=== PATIENT | female | born 1975 | race Two or more races ===

== ENCOUNTER 2017-03-02 10:02 | Outpatient (CLI) | payer OTHER | END 2017-03-02 10:15 | disposition home or self-care (01) | LOC: TOM 10:02 | DX: N13.30 Unspecified hydronephrosis (principal) ==

== ENCOUNTER 2017-11-29 15:24 | Emergency (ER) | payer OTHER ==
[~2017-11-29] VITALS: Ht 152.4 cm; Wt 51.7 kg
== END 2017-11-29 17:15 | disposition home or self-care (01) ==
LOC: ER 15:24
DX: M65.221 Calcific tendinitis, right upper arm (principal)

== ENCOUNTER 2018-05-16 10:43 | Outpatient (CLI) | payer OTHER | END 2018-05-16 11:01 | disposition home or self-care (01) | LOC: SONOGRAMA 10:43 | DX: M75.101 Unspecified rotator cuff tear or rupture of right shoulder, not specified as traumatic (principal) ==

== ENCOUNTER 2018-05-16 13:36 | Outpatient (CLI) | payer OTHER | END 2018-05-16 15:15 | disposition home or self-care (01) | LOC: RAD 501 13:36 | DX: M25.661 Stiffness of right knee, not elsewhere classified (principal) ==

== ENCOUNTER 2021-07-19 10:58 | Emergency (ER) | payer OTHER ==
[~2021-07-19] VITALS: Ht 152.4 cm; Wt 55.3 kg
[2021-07-19] MEDS ORDERED: NAPR500T14 PO (11:12)
[2021-07-19] MEDS ORDERED: NORFLEX100MG PO (12:48)
[2021-07-19] MEDS ORDERED: KETO10TA2 PO (12:48)
== END 2021-07-19 13:24 | disposition home or self-care (01) ==
LOC: ER 10:58
DX: M54.9 Dorsalgia, unspecified (principal); M41.86 Other forms of scoliosis, lumbar region

== ENCOUNTER 2023-10-31 17:19 | Emergency (ER) | payer OTHER ==
[~2023-10-31] VITALS: Ht 152.4 cm; Wt 54.9 kg
[~2023-10-31 17:19] MED LIST: KETO10TA2 PO; NAPR500T14 PO; NORFLEX100MG PO
[2023-10-31] MEDS ORDERED: ORPHENADRINE CITRATE 30 MG/ML AMPUL IM ONE (22:45)
[2023-10-31] MEDS ORDERED: KETOROLAC TROMETHAMINE 60 MG VIAL IM ONE ×2 (22:45→23:13)
[2023-10-31] MEDS ORDERED: ORPHENADRINE CITRATE 30 MG/ML AMPUL ONE (23:12)
[2023-11-01] MEDS ORDERED: NORFLEX100MG PO (00:05)
[2023-11-01] MEDS ORDERED: IBU600 MG PO (00:05)
== END 2023-11-01 00:22 | disposition home or self-care (01) ==
LOC: ER 17:20
DX: M62.830 Muscle spasm of back (principal); M62.838 Other muscle spasm; T14.8XXA Other injury of unspecified body region, initial encounter; V49.9XXA Car occupant (driver) (passenger) injured in unspecified traffic accident, initial encounter; Y93.89 Activity, other specified; Y92.413 State road as the place of occurrence of the external cause; Y99.9 Unspecified external cause status; M51.36 Other intervertebral disc degeneration, lumbar region